=== PATIENT | male | born 1935 | race Caucasian/White ===

== ENCOUNTER 2017-01-16 08:51 | Emergency (ER) | payer MEDICARE, BC ==
[~2017-01-16] VITALS: Ht 172.7 cm; Wt 111.1 kg
--- NOTE | ~2017-01-16 | CT71 ---
[facility] A Service of [facility] RADIOLOGY TEXT RESULTS PATIENT: ROMEO WEST LOCATION: [facility] : 34 UNIT #: [id number] AGE: [address]: Fritz Beaulieu MD SEX: M ORDER DR: [id number] [facility] [address] [place], [place] [address] [id number] E MR#: [id number] #: [id number] NAME: ROMEO WEST. : 1935 SEX: M STUDY DATE/TIME: 01/16/2017 11:31 UNIT: [facility] ROOM: STUDY DESCRIPTION: CT Head Wo Contrast Attending Physician: Fritz Beaulieu M.D. Ordering Physician: Fritz Beaulieu M.D. Primary Care Physician: No Primary Care Physician MEDICAL IMAGING REPORT This report is preliminary unless electronic signature is present EXAM Noncontrast head CT HISTORY Sent by primary doctor due to acute kidney injury. Complains of weakness today. TECHNIQUE This CT exam was performed with one or more of the following radiation dose reduction techniques: Automatic exposure control, adjustment of mA and/or kV according to patient size, and iterative reconstruction. FINDINGS Axial noncontrast imaging of the brain demonstrates mild atrophy in keeping with advanced age. No mass or mass effect or midline shift. No hemorrhage. Questionable small right periventricular lacunar infarct. No large vessel infarct. Small amount of intracranial calcification. Bony calvarium, skull base, mastoids and sinuses unremarkable. IMPRESSION No acute intracranial abnormality identified. Dictated by... Zuleika Lombardi M.D. THIS IS AN ELECTRONICALLY VERIFIED REPORT Zuleika Lombardi M.D. at 01/16/2017 5:09 PM BUBBA/kimberly TD: 01/16/2017 14:50 JOB #: [id number] [facility] A Service of [facility] RADIOLOGY TEXT RESULTS PATIENT: ROMEO WEST LOCATION: [facility] : 34 UNIT #: [id number] AGE: [address]: Fritz Beaulieu MD SEX: M ORDER DR: MEDICAL IMAGING REPORT Page 1 of 1 COPY
--- NOTE | ~2017-01-16 | EKG ---
PATIENT: ROMEO WEST UNIT #: [id number] Ventricular Rate: 65 BPM Atrial Rate: 241 BPM QRS Duration: 106 ms Q-T Interval: 510 ms QTC Calculation(Bezet): 530 ms Calculated R [place]: 26 degrees Calculated T [place]: 73 degrees Diagnosis Line: Atrial fibrillation Diagnosis Line: Low voltage QRS Diagnosis Line: ST and T wave abnormality, consider anterolateral Diagnosis Line: ischemia Diagnosis Line: Prolonged QT Diagnosis Line: Abnormal ECG Diagnosis Line: When compared with ECG of 08-JUL-2016 05:40, Diagnosis Line: Electronic demand pacing is no longer Present Diagnosis Line: Nonspecific T wave abnormality now evident in Diagnosis Line: Inferior leads Diagnosis Line: T wave inversion now evident in Anterolateral Diagnosis Line: leads Diagnosis Line: Confirmed by SHASHANK OLIVIA MD ([id number]) on 01/17/2017 Diagnosis Line: 8:35:14 AM INTERPRETING MD: CORWIN OSBORNE
--- NOTE | ~2017-01-16 | CR72 ---
[facility] A Service of [facility] RADIOLOGY TEXT RESULTS PATIENT: ROMEO WEST LOCATION: [facility] : 34 UNIT #: [id number] AGE: [address]: Fritz Beaulieu MD SEX: M ORDER DR: [id number] [facility] [address] [place], [place] [address] [id number] E MR#: [id number] #: [id number] NAME: ROMEO WEST. : 1935 SEX: M STUDY DATE/TIME: 01/16/2017 11:10 UNIT: [facility] ROOM: STUDY DESCRIPTION: CR Chest Single View Portable Attending Physician: Fritz Beaulieu M.D. Ordering Physician: Fritz Beaulieu M.D. Primary Care Physician: Primary Care Physician No MEDICAL IMAGING REPORT This report is preliminary unless electronic signature is present EXAM Chest portable, 01/16/2017 11: 10 hours HISTORY 81-year-old man complaining of shortness of air today. History of pacemaker. COMPARISON 07/04/2016 FINDINGS Portable upright chest demonstrates stable underlying scoliosis and posterior right upper rib deformities. There is mild cardiomegaly and a tortuous aorta. There is linear density at the lung bases consistent with chronic atelectasis or scar not appreciably changed. There is very minimal linear density in the right midlung in the left perihilar region felt likely atelectasis or scar rather than infection. There is no edema or effusion seen. IMPRESSION 1. Stable scoliosis. There is stable cardiomegaly with pacer device. 2. There are bibasilar linear densities similar to 07/04/2016 consistent with chronic atelectasis or scar. There is slight increase in mild perihilar linear densities felt likely atelectasis or scar. No definite edema or pneumonia seen. Dictated by... Olga Funes M.D. THIS IS AN ELECTRONICALLY VERIFIED REPORT Olga Funes M.D. at 01/16/2017 1:44 PM RHYS/dionne STS. [facility] A Service of [facility] RADIOLOGY TEXT RESULTS PATIENT: ROMEO WEST LOCATION: [facility] #: [id number] : 33 UNIT #: [id number] AGE: [address]: Fritz Beaulieu MD SEX: M ORDER DR: TD: 01/16/2017 12:59 JOB #: [id number] MEDICAL IMAGING REPORT Page 1 of 1 COPY
[~2017-01-16 08:51] MED LIST: ALBUTEROL17 GM INH; ALPRAZOLAM PO; ALPRAZOLAM0.25 MG PO; AMIODARONE PO; ASPIRIN EC81 M1 PO; ASPIRIN PO; ASPIRIN81 MG PO; BENZONATATE PO; CEFTIN500 MG PO; CELEBREX PO; COMBIVENT RESPIM4 GM INH; CORDARONE200 M1 PO; COUMADIN5 MG PO; DILTIAZEM 24HR120 M1 PO; DILTIAZEM 24HR120 MG PO; DILTIAZEM 24HR240 M2 PO; ELIQUIS2.5 MG PO; ELIQUIS5 MG PO; FLOMAX0.4 M1 PO; FLOMAX0.4 MG PO; HCTZ PO; HYDROCODON-ACE1 EAC9 PO; JANTOVEN2.5 MG PO; K-DUR10 MEQ PO; KCL PO; LASIX PO; LASIX80 MG PO; LIPITOR PO; LOSARTAN POTASS50 MG PO; LOTREL 10/20 MG1 CAP PO; METOPROLOL TAR100 MG PO; MICRO-K PO; NORVASC10 MG PO; PANTOPRAZOLE SO40 MG PO; POTASSIUM CHLO10 MEQ PO; PROSCAR5 MG PO; PROTONIX PO; SPIRONOLACTONE50 MG PO; SYMBICORT INH; SYMBICORT80 INH; TOPROL XL PO; TRAMADOL HCL50 M2 PO; WARFARIN SODIU2.5 M1 PO; ZIAC1 TAB 5/6. PO
[2017-01-16 10:00] LABS: BASOPHIL% 0.4 % (0-2.5); EOSINOPHIL% 0.4 % (0.0-7.0); HEMATOCRIT 34.2 % (38.0-50.0); HEMOGLOBIN 11.2 gm/dL (13.0-16.0); LYMPHOCYTE# 0.6 X10e3 (1.0-3.5); LYMPHOCYTE% 10.5 % (17.0-45.0); MEAN CELL VOLUME 94.6 FL (83-96); MEAN CORPUSCULAR HEMOGLOBIN 31.1 PG (28-34); MEAN CORPUSCULAR HGB CONC 32.9 g/dL (30-36); MEAN PLATELET VOLUME 8.4 FL (6.5-11.5); MONOCYTE# 0.6 X10e3 (0-1.0); MONOCYTE% 10.4 % (3.0-12.0); NEUTROPHIL# 4.6 X10e3 (1.5-7.1); NEUTROPHIL% 78.3 % (40-75); PLATELET COUNT 243 X10e3 (140-420); RED BLOOD COUNT 3.61 X10e (3.90-5.60); RED CELL DISTRIBUTION WIDTH 15.1 % (11.0-15.5); WHITE BLOOD COUNT 5.8 X10e3 (4.0-10.5)
[2017-01-16 10:02] LABS: DIFF IND YES
[2017-01-16 10:17] LABS: ANISOCYTOSIS SL; PLATELET ESTIMATE NORMAL (NORMAL)
[2017-01-16 10:25] LABS: ALBUMIN SERUM 2.8 g/dL (3.5-5.0); BILIRUBIN, DIRECT 0.4 mg/dL (0.0-0.2); BILIRUBIN,INDIRECT 0.5 mg/dL (0.0-0.9); BILIRUBIN,TOTAL 0.9 mg/dL (0.2-2.0); CALCIUM SERUM 8.9 mg/dL (8.4-10.2); CREATININE SERUM 1.8 mg/dL (0.6-1.4); GLOM FILT RATE Estimated 34.3 mL/min (>60); POTASSIUM 3.6 mmol/L (3.5-5.1); PROTEIN TOTAL SERUM 6.8 g/dL (6.0-8.3)
[2017-01-16 10:34] LABS: URINE SOURCE CLEAN CATCH
[2017-01-16 10:40] LABS: URINE APPEARANCE CLEAR; URINE BILIRUBIN NEG (NEG); URINE BLOOD NEG (NEG); URINE COLOR YELLOW; URINE GLUCOSE NEG (NEG); URINE KETONE NEG (NEG); URINE LEUKOCYTE ESTERASE NEG (NEG); URINE NITRATE NEG (NEG); URINE PROTEIN NEG (NEG); URINE SPECIFIC GRAVITY 1.012 (1.003-1.035); URINE UROBILINOGEN 0.2 MG/DL (NEG)
[2017-01-16 10:44] LABS: CULTURE INDICATED? NO
== END 2017-01-16 14:05 | disposition home or self-care (01) ==
LOC: CED 08:51
PROVIDERS: Emergency Medicine
DX: R53.1 Weakness (principal); N18.9 Chronic kidney disease, unspecified; Z79.899 Other long term (current) drug therapy
CPT/HCPCS: 36415; 51701; 70450; 71010; 80048; 80076; 81003; 83880; 85025; 93005; 99285